=== PATIENT | female | born 1945 | race Caucasian/White ===

== ENCOUNTER → 2016-10-14 | Outpatient (CLI) | payer BC, MEDICARE ==
--- NOTE | 2016-10-14 11:26 | ST Modified Barium Swallow ---
Recommendation - Recommendations Recommendations: 1) Recommend continue current diet. 2) Pt reports difficulty with pills, observed during study- pt unable to propel pill posteriorly past tongue base, however for pill only. Flash penetration observed with thin when pt attempting to swallow pill. No other penetration observed. All other oral motor function WNL. Recommend taking pills whole in puree. 3) Recommend continued medical management of relux. Laryngoesophageal reflux observed on solid consistencies (puree and regular solids). Recommend alternating bites and sips to aid in clearing residuals from laryngoesophageal reflux. Pt reports "tumor is pressing on the esophagus" and also has a hiatal hernia. 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 - ICD-10 Tx Diagnosis Coding (1) Esophageal dysphagia ICD-10 Code(s): R13.14 - DYSPHAGIA, PHARYNGOESOPHAGEAL PHASE ST Modified Barium Swallow - General Date: 10/14/16 Referring Physician: Dr Guaman Risks/Precautions: Falls - using wheelchair at evaluation Date of Onset: 10/14/14 Reason for Referral: dysphagia - History History obtained from: Patient -: Medical - Pt reports choking on a "piece of hamburger" which required family "hitting" her back. Pt reports onset of symptoms approximately 2 years ago however have become worse. Pt states has globus sensation in lower neck. Coughing on mostly solids. Most recent PNA was in Jun 2015 which required hospitalization and was "in a coma for 7-8 days". Pt reports bronchitis 2-3 times per year. Pt reports not limiting diet due to swallowing difficulty. Pt reports diagnosis of tumor on thyroid which is "pressing on the esophagus". Pt also reports history of reflux, ulcers and hiatal hernia. 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 Medications: per pt: lexapro, amitriptyline, spiriva, symbicort, proair, "breathing medicine", oxycodone, previcid. Allergies: pollen - Functional Status Prior Functional Status: INDEPENDENT: feeding Current Functional Limitations: feeding - Subjective Patient/caregiver goal(s): safe swallow, r/o aspiration Cognitive-Linguistic Function: WNL Speech Intelligibility: WNL Current Nutritional Means: PO Current PO diet: Regular Pain: 2/5 - pain - Objective Assessment: Upright, Left Lateral - Food Trials Used Food trials used: Thin liquids, Pureed, Regular The patient: Was Able to Self Feed - Oral-Motor Skills Dentition: Dentures-Upper, Dentures-Lower Velo-pharyngeal function: Unremarkable Laryngeal Function: Volitional Cough, Volitional Swallow - Assessment Oral prep: Normal Labial closure: Adequate Leakage: None Mastication: Adequate Lingual Movement: Normal Oral stage: Normal for this Procedure - Pharyngeal Stage Initiation of Pharyngeal Stage Reflex: Normal Decreased laryngeal elevation: No Reduced Velopharyngeal Closure: no Reduced pressure generation: No reduced tongue-based retraction: No Pre-swallow pooling in valleculae: None Pre-Swallow pooling in pyriforms: None Reduced Thyro-Hyoid approximation: No Reduced epiglottic excursion: No Reduced pharyngeal peristalsis/contraction: No Post-swallow residulas vallecular: None Post-Swallow residuals in pyriforms: None - Fall Risk Assessment Medications/Conditions that increase fall risks include: Antidepressants, sedatives, anti-arrhythmic, diuretic, benzodiazipenes, neuroleptics. BP regulation problems, cardiac problems, balance or gait deficits, neurological problems. Is patient considered at risk for falls: yes Fall Risk Actions Taken: Pt physician notified - Behavioral Observations During evaluation process patient: was pleasant, was cooperative, able to answer questions, provided medical history - Treatment / Educational Needs: Treatment/Education Needs: Treatment consisted of patient education on the role of the Speech Pathologist. Patient's plan of care and golas were communicated as well as scheduling and attendance policies. Recommendations for initial home program were shared. Patient demonstrated understanding and verbalized agreement. - Impression/Summary Laryngeal Penetration: Yes, Flash - on thin when pt attempting to swallow pill, however pill still in oral cavity. Tracheal Aspiration: no Risk of Aspiration: Minimal - Recommendations NPO: no Solid diet recommendations: Regular Liquid Diet Modification: Thin Pt/Family education and followup with MD: Yes Dysphagia therapy with WEAVING PROFESSOR: no Recommended techniques: Fully Upright During Meal, Small Bites and Sips, Alternate Bites/Sips Supervision: Distant Information, Precautions and Recommendations: Patient (Verbal), Family Member ( Verbal) - Time Total Time: 25 - Plan of Care Strategies to optimize patient understanding include:: ongoing assessment of educational needs, implementation of educational strategies, and re-education. - - -: Thank you for the opportunity to work with this patient and his/her family. Should you have any questions about this patient's plan or progress, I can be reached at [phone]. Charge G Code? - - -: Yes ST F.L. Impairment Category - Rationale Based On Rationale Based On: Clin Find., Obj Measures - Swallowing Current G8996: CI 1-19% Impaired Goal G8997: CI 1-19% Impaired Discharge G8998: CI 1-19% Impaired
== END ==
LOC: RAD 08:16
PROVIDERS: ATTEND Internal Medicine Pulmonary Disease
DX: T17.320A Food in larynx causing asphyxiation, initial encounter (principal); J44.9 Chronic obstructive pulmonary disease, unspecified; J96.11 Chronic respiratory failure with hypoxia
CPT/HCPCS: 74230; 92611; G8996; G8997; G8998

== ENCOUNTER → 2017-08-22 | Outpatient (CLI) | payer BC, MEDICARE ==
--- NOTE | 2017-08-23 12:36 | RADIOLOGY REPORT (SQ) ---
EXAM DESCRIPTION: CT CHEST WITHOUT COMPLETED DATE/TIME: 08/22/2017 3:55 pm REASON FOR STUDY: BRONCHIECTASIS J47.9 BRONCHIECTASIS, UNCOMPLICATED COMPARISON: 07/07/2015. TECHNIQUE: CT scan performed of the chest without intravenous contrast. Images reviewed with lung, soft tissue and bone windows. Reconstructed coronal and sagittal MPR images reviewed. All images st ored on PACS. All CT scanners at this facility use dose modulation, iterative reconstruction, and/or weight based d osing when appropriate to reduce radiation dose to as low as reasonably achievable (ALARA). [facility]: Dose Right [facility]: CareDose [facility]: Dose Right [facility]: Teradose 4D [facility]: Smart Piqora RADIATION DOSE: CT Rad equipment meets quality standard of care and radiation dose reduction techniq ues were employed. CTDIvol: 8.9 mGy. DLP: 331 mGy-cm. mGy. LIMITATIONS: No technical limitations. FINDINGS: LUNGS AND PLEURA: Minimal subpleural septal thickening. Normal tapering of the distal bro nchials with no significant bronchiectasis. No masses, infiltrates, pneumothorax. No pleural effusi ons, calcifications. HILAR AND MEDIASTINAL STRUCTURES: No identified masses or abnormal nodes. No obvious aneurysm. HEART AND VASCULAR STRUCTURES: No aneurysm. No pericardial effusion. UPPER ABDOMEN: No significant findings. Limited exam. THYROID AND OTHER SOFT TISSUES: 3 cm mass arising from the lower portion of the thyroid and extending into the substernal chest. No adenopathy. BONES: No significant finding. HARDWARE: None in the chest. OTHER: No other significant findings. IMPRESSION: 1. MINIMAL CHRONIC CHANGES. NO SIGNIFICANT BRONCHIECTASIS. 2. SUBSTERNAL THYROID NODULE. TECHNICAL DOCUMENTATION: JOB ID: [id number] Quality ID # [id number]: Final reports with documentation of one or more dose reduction techniques (e.g., Au tomated exposure control, adjustment of the mA and/or kV according to patient size, use of iterative reconstruction technique) 2010 [employer]- All Rights Reserved
== END ==
LOC: RAD 15:30
PROVIDERS: ATTEND Internal Medicine Pulmonary Disease
DX: J47.9 Bronchiectasis, uncomplicated (principal); E04.1 Nontoxic single thyroid nodule
CPT/HCPCS: 71250

== ENCOUNTER → 2018-06-15 | Outpatient (CLI) | payer BC, MEDICARE ==
--- NOTE | 2018-06-15 17:26 | RADIOLOGY REPORT (SQ) ---
EXAM DESCRIPTION: PELVIS AP COMPLETED DATE/TIME: 06/15/2018 4:53 pm REASON FOR STUDY: SACROCOCCYGEAL DISORDERS, NOT ELSWHERE CLASSIFIED M53.3 SACROCOCCYGEAL DISORDERS, NOT ELSEWHERE CLASSIFIED COMPARISON: Bilateral SI joints same date NUMBER OF VIEWS: One view TECHNIQUE: AP Pelvis LIMITATIONS: None. FINDINGS: MINERALIZATION: Normal. HIPS: No acute fracture or dislocation. No worrisome bone lesions. PELVIS AND SACRUM: No acute fracture or dislocation. No worrisome bone lesions. Mild right SI joint sclerosis PUBIS AND ISCHIUM: No acute fracture. LOWER LUMBAR SPINE: Not in the field of view SOFT TISSUES: No findings. OTHER: No other significant finding. IMPRESSION: Right SI joint sclerosis TECHNICAL DOCUMENTATION: JOB ID: [id number] [employer]- All Rights Reserved Reading location - IP/workstation name: [email or web address]
--- NOTE | 2018-06-15 17:27 | RADIOLOGY REPORT (SQ) ---
EXAM DESCRIPTION: SACROILIAC JOINTS 3 OR MORE COMPLETED DATE/TIME: 06/15/2018 4:53 pm REASON FOR STUDY: SACROCOCCYGEAL DISORDERS, NOT ELSEWHERE CLASSIFIED M53.3 SACROCOCCYGEAL DISORDERS , NOT ELSEWHERE CLASSIFIED COMPARISON: AP pelvis same date NUMBER OF VIEWS: Three views. TECHNIQUE: AP and oblique views of the sacroiliac joints. LIMITATIONS: None. FINDINGS: MINERALIZATION: Normal. BONES: No acute fracture or dislocation. No worrisome bone lesions. No significant osteophytes. JOINTS: Sclerosis right SI joint. Left SI joint unremarkable SOFT TISSUES: No soft tissue swelling. No radio-opaque foreign body. OTHER: No other significant finding. IMPRESSION: Sclerosis right SI joint TECHNICAL DOCUMENTATION: JOB ID: [id number] [employer]- All Rights Reserved Reading location - IP/workstation name: [email or web address]
== END ==
LOC: RAD 15:53
PROVIDERS: ATTEND Physician Assistant
DX: M53.3 Sacrococcygeal disorders, not elsewhere classified (principal)
CPT/HCPCS: 72170; 72202

== ENCOUNTER 2018-12-14 11:07 | Emergency (ER) | payer BC, MEDICARE ==
--- NOTE | 2018-12-14 12:18 | ER Document Report ---
Entered by JUN CAN SCRIBE 12/14/18 1153 Acting as scribe for:HODA MEAD MD ED General - General Chief Complaint: Fall Injury Stated Complaint: FALL/BACK PAIN Time Seen by Provider: 12/14/18 11:31 Primary Care Provider: MARIS GUAMAN MD [Primary Care Provider] - Follow up as needed Mode of Arrival: Medic Information source: Patient Notes: Patient is a 73 year old female with COPD, hypothyroidism, chronic back pain, depression presents to the emergency department complaining of lower back pain, left ankle and RLE pain secondary a mechanical trip and fall. Patient states 1 week ago, she tripped and fell injuring her left ankle and right lower extremity. She states her left ankle was very swollen and she could not bear any weight on it and further reports she did not present to a provider at that time. She states today, the patient had another mechanical trip and fall when attempting to go to the restroom. She reports falling backwards and landing on her back and hitting her head. Patient reports her aviation safety officer is Dr. Guaman and she follows up with [facility] in [place]. 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 She states she discontinued another depression medication due to it making her dizzy. TRAVEL OUTSIDE OF THE [place] IN LAST 30 DAYS: No - Related Data Allergies/Adverse Reactions: iodine Allergy (Verified 12/14/18 12:37) methadone Allergy (Verified 12/14/18 12:38) Past Medical History - General Information source: Patient - Social History Smoking Status: Former Smoker - quit 3 months ago, nicotine patch Cigarette use (# per day): No Chew tobacco use (# tins/day): No Smoking Education Provided: No Frequency of alcohol use: None Drug Abuse: None Lives with: Family Family History: Reviewed & Not Pertinent Pulmonary Medical History: Reports: Hx COPD Musculoskeletal Medical History: Reports Hx Arthritis Psychiatric Medical History: Reports: Hx Depression Past Surgical History: Reports: Hx Cholecystectomy, Hx Hysterectomy, Other - Possible ureteroplasty Review of Systems - Review of Systems Constitutional: No symptoms reported EENT: No symptoms reported Cardiovascular: No symptoms reported Respiratory: No symptoms reported Gastrointestinal: No symptoms reported Genitourinary: No symptoms reported Female Genitourinary: No symptoms reported Musculoskeletal: See HPI Skin: No symptoms reported Hematologic/Lymphatic: No symptoms reported Neurological/Psychological: No symptoms reported -: Yes All other systems reviewed and negative Physical Exam - Vital signs Vitals: Temp Pulse Resp BP Pulse Ox 99.2 F 87 16 113/52 L 91 L 12/14/18 11:08 12/14/18 11:08 12/14/18 11:08 12/14/18 11:08 12/14/18 11:08 - Notes Notes: GENERAL: Alert, interacts well. No acute distress. HEAD: Normocephalic, atraumatic. EYES: Pupils equal, round, and reactive to light. Extraocular movements intact. ENT: Oral mucosa moist, tongue midline. NECK: Full range of motion. Supple. Trachea midline. Chin to chest testing intac t. LUNGS: On 2L of nasal cannula. Clear to auscultation bilaterally, no wheezes, rales, or rhonchi. No respiratory distress. HEART: Regular rate and rhythm. No murmurs, gallops, or rubs. ABDOMEN: Soft, non-tender. Non-distended. Bowel sounds present in all 4 quadrants. No guarding, rigidity, or rebound. EXTREMITIES: Moves all 4 extremities spontaneously. Erythema and swelling to the left lateral ankle, tender to palpation. NEUROLOGICAL: Alert and oriented x3. Normal speech. PSYCH: Normal affect, normal mood. SKIN: Warm, dry, normal turgor. No rashes or lesions noted. BACK: Tender to palpate the mid to lower right lumbar and sacral region. Course - Re-evaluation Re-evalutation: 12/14/18 13:44 The patient's laboratory evaluation does show a serum CO2 of 51, the last blood work in the computer for comparison was 2 years ago, at that time she was running serum CO2's in the 40s. She does not show any signs of worsening shortness of breath, she does talk in quite long sentences before taking breaths. - Vital Signs Vital signs: Temp Pulse Resp BP Pulse Ox 99.2 F 87 16 113/52 L 91 L 12/14/18 11:08 12/14/18 11:08 12/14/18 11:08 12/14/18 11:08 12/14/18 11:08 - Laboratory Result Diagrams: 12/14/18 12:27 12/14/18 12:27 Laboratory results interpreted by me: 12/14/18 12/14/18 12:27 12:27 RBC 3.36 L Hgb 10.0 L Hct 30.4 L RDW 15.4 H Seg Neutrophils % 84.4 H Lymphocytes % 10.0 L Chloride 85 L Carbon Dioxide 51 H* Anion Gap 4 L - Diagnostic Test Radiology reviewed: Image reviewed, Reports reviewed - Left ankle x-ray does not show acute injury. Lumbar sacral x-rays show mild degenerative disc disease with no acute changes. Discharge - Discharge Clinical Impression: Acute exacerbation of chronic low back pain Fall Qualifiers: Encounter type: initial encounter Qualified Code(s): W19.XXXA - Unspecified fall, initial encounter Sprain of left ankle Qualifiers: Encounter type: initial encounter Involved ligament of ankle: calcaneofibular ligament Qualified Code(s): S93.412A - Sprain of calcaneofibular ligament of left ankle, initial encounter Condition: Stable Disposition: HOME, SELF-CARE Additional Instructions: Sprained Ankle Your sprained ankle results from stretching or tearing of the ligaments which support the ankle. This usually results from twisting the foot inward and under. The ligaments will require time and protection in order to heal properly. Many ankle sprains are quite disabling, and should be taken seriously. The usual treatment for an ankle sprain is cold packs; protection with tape, splints, or wraps; elevation; and staying off the ankle for at least a day. As the ankle improves, you can walk IF it's not painful to bear weight. Sports are best postponed until healing is complete. More serious sprains usu ally require strengthening exercises after early healing. Your physician has assessed the seriousness of the ligament injury to your ankle. However, the treatment may change, depending on how your ankle progresses. If further exams were recommended, it is important that you follow through. Call the doctor if your foot becomes numb, painful, or severely swollen. Ankle Stirrup Splint You are to use an ankle brace called a stirrup splint. This type of brace allows you to place greater stresses on the ankle without risk of re-injury, and is often used for more severe ankle injuries such as avulsion fractures and ligament ruptures. The splint can be worn over a sock or tape. For proper support, wear the splint with a shoe over it. It's important that the splint fit properly. Adjust the heel tension, if needed. If your splint has air bladders, peel back the bottom of each air bladder, then move the Velcro attachment of the heel strap up or down. Air bladder pressure can be adjusted by pulling up the valve at the top, threading the air tube down into the main bladder, then blowing air into the bladder or squeezing it out. The two sides of the stirrup can be moved forward or back on your ankle by changing the attachment of the main straps. If you are unable to use the ankle comfortably in the splint, return for re-evaluation. Your x-rays did not show any fractures of your low back or your ankle. Your examination does show that you probably contused or strained your low back where you already have chronic pain. You also did sprain your ankle when you fell several days ago. We are going to place you in an ankle stirrup splint to support your ankle and make it easier to walk and reduce the risk of falling. You should follow-up with your primary care provider Tuesday for recheck to be sure everything is improving. RETURN TO THE EMERGENCY ROOM IF ANY NEW OR WORSENING SYMPTOMS. Referrals: MARIS GUAMAN MD [Primary Care Provider] - Follow up as needed Scribe Attestation: 12/14/18 12:21 I personally performed the services described in the documentation, reviewed and edited the documentation which was dictated to the scribe in my presence, and it accurately records my words and actions. I personally performed the services described in the documentation, reviewed and edited the documentation which was dictated to the scribe in my presence, and it accurately records my words and actions.
[2018-12-14 12:53] LABS: ABSOLUTE LYMPHOCYTES (AUTO) 0.8 10^3/uL (0.5-4.7); ABSOLUTE MONOCYTES (AUTO) 0.4 10^3/uL (0.1-1.4); ABSOLUTE NEUT (AUTO) 6.6 10^3/uL (1.7-8.2); BASOPHILS % (AUTO) 0.1 % (0-2); EOSINOPHILS % (AUTO) 0.4 % (0-6); HEMATOCRIT 30.4 % (36.0-47.0); MEAN CORPUSCULAR HEMOGLOBIN 29.7 pg (27.0-33.4); MEAN CORPUSCULAR HGB CONC 32.8 g/dL (32.0-36.0); MEAN CORPUSCULAR VOLUME 91 fl (80-97); MONOCYTES % (AUTO) 5.1 % (3-13); PLATELET COUNT 237 10^3/uL (150-450); RED BLOOD COUNT 3.36 10^6/uL (3.72-5.28); RED CELL DISTRIBUTION WIDTH 15.4 % (11.5-14.0); SEGMENTED NEUTROPHILS % (AUTO) 84.4 % (42-78); TOTAL CELLS COUNTED % (AUTO) 100 %; WHITE BLOOD COUNT 7.9 10^3/uL (4.0-10.5)
[2018-12-14 13:10] LABS: APPEARANCE,URINE SLIGHTLY-CLOUDY; BILIRUBIN,URINE NEGATIVE (NEGATIVE); COLOR,URINE YELLOW; GLUCOSE, URINE NEGATIVE (NEGATIVE); KETONES,URINE NEGATIVE (NEGATIVE); LEUKOCYTE ESTERASE,URINE NEGATIVE (NEGATIVE); NITRITE,URINE NEGATIVE (NEGATIVE); PROTEIN,URINE NEGATIVE (NEGATIVE); URINE SPECIFIC GRAVITY 1.015; UROBILINOGEN,URINE NEGATIVE mg/dL (<2.0)
[2018-12-14 13:17] LABS: ALANINE AMINOTRANSFERASE 26 U/L (9-52); ALBUMIN 3.5 g/dL (3.5-5.0); ALKALINE PHOSPHATASE 99 U/L (38-126); ASPARTATE AMINO TRANSFERASE 21 U/L (14-36); BILIRUBIN,DIRECT 0.2 mg/dL (0.0-0.4); BILIRUBIN,TOTAL 0.5 mg/dL (0.2-1.3); BLOOD UREA NITROGEN 19 mg/dL (7-20); CALCIUM 9.4 mg/dL (8.4-10.2); CHLORIDE 85 mmol/L (98-107); GLUCOSE 95 mg/dL (75-110); POTASSIUM 4.5 mmol/L (3.6-5.0); SODIUM 139.8 mmol/L (137-145); TOTAL PROTEIN 6.3 g/dL (6.3-8.2)
--- NOTE | 2018-12-14 13:31 | RADIOLOGY REPORT (SQ) ---
EXAM DESCRIPTION: ANKLE LEFT COMPLETE COMPLETED DATE/TIME: 12/14/2018 1:10 pm REASON FOR STUDY: Fall, left lateral ankle pain and swelling COMPARISON: None. NUMBER OF VIEWS: Three views. TECHNIQUE: AP, lateral, and oblique radiographic images acquired of the left ankle. LIMITATIONS: None. FINDINGS: MINERALIZATION: Normal. BONES: No acute fracture or dislocation. No worrisome bone lesions. JOINTS: No effusions. SOFT TISSUES: No soft tissue swelling. No foreign body. OTHER: No other significant finding. IMPRESSION: NEGATIVE STUDY OF THE LEFT ANKLE. NO RADIOGRAPHIC EVIDENCE OF ACUTE INJURY. TECHNICAL DOCUMENTATION: JOB ID: [id number] [employer]- All Rights Reserved Reading location - IP/workstation name: [email or web address]
[2018-12-14 13:32] LABS: CARBON DIOXIDE 51 mmol/L (22-30)
[2018-12-14 13:34] LABS: ANION GAP 4 (5-19)
--- NOTE | 2018-12-14 13:34 | RADIOLOGY REPORT (SQ) ---
EXAM DESCRIPTION: L SPINE WHOLE COMPLETED DATE/TIME: 12/14/2018 1:10 pm REASON FOR STUDY: Fall, low back pain COMPARISON: 04/29/2011. NUMBER OF VIEWS: Five views including obliques. TECHNIQUE: AP, lateral, oblique, and sacral radiographic images acquired of the lumbar spine. LIMITATIONS: None. FINDINGS: MINERALIZATION: Normal. SEGMENTATION: Normal. No transitional anatomy. ALIGNMENT: Normal. VERTEBRAE: Maintained height. No fracture or worrisome bone lesion. DISCS: Mild disc space narrowing with small osteophytes. POSTERIOR ELEMENTS: Pedicles and facets are intact. No pars defect or posterior arch defects. HARDWARE: None in the spine. PARASPINAL SOFT TISSUES: Normal. PELVIS: Intact as visualized. No fractures or worrisome bone lesions. SI joints intact. OTHER: No other significant finding. IMPRESSION: MILD DEGENERATIVE DISC DISEASE. NO ACUTE FINDINGS. TECHNICAL DOCUMENTATION: JOB ID: [id number]- All Rights Reserved Reading location - IP/workstation name: [email or web address]
[2018-12-14 17:02] VITALS: BP 131/53
== END 2018-12-14 17:00 | disposition home or self-care (01) ==
LOC: ER 11:48
DX: S93.412A Sprain of calcaneofibular ligament of left ankle, initial encounter (principal); W01.0XXA Fall on same level from slipping, tripping and stumbling without subsequent striking against object, initial encounter; G89.29 Other chronic pain; M54.9 Dorsalgia, unspecified; J44.9 Chronic obstructive pulmonary disease, unspecified; E03.9 Hypothyroidism, unspecified; Z90.49 Acquired absence of other specified parts of digestive tract; Z90.710 Acquired absence of both cervix and uterus
CPT/HCPCS: 99284; 36415; 85025; 80053; 81001; 73610; 72110; L1902